=== PATIENT | male | born 1960 | race Caucasian/White ===

== ENCOUNTER 2022-11-18 08:43 | Outpatient (CLI) | payer BC, SELFPAY ==
--- NOTE | 2022-11-18 08:15 | DI.RAD_ITS ---
Exam(s) XR ANKLE LT COMPLETE EXAM: XR ANKLE LT COMPLETE CLINICAL HISTORY: ankle pain TECHNIQUE: 2D digital imaging was performed. Three views. COMPARISON: No exams were available for comparison FINDINGS: BONES: There is a fracture seen extending obliquely through the lateral malleolus the level of the an kle mortise. There is mild displacement of the fracture. This appears subacute. No additional frac tures are seen. Spur is incidentally noted at the dorsal of the talus. Mild spurring seen at tip of medial malleolus. No bony destructive lesion is seen. JOINTS:The ankle mortise is normally aligned. SOFT TISSUE: Mild swelling around lateral malleolus. IMPRESSION: Minimally displaced fracture lateral malleolus without evidence of ankle mortise widening. DATA REPOSITORY: RADIATION DOSE DELIVERED:
== END 2022-11-18 08:44 | disposition home or self-care (01) ==
LOC: DIORS 08:44
PROVIDERS: PCP Internal Medicine; Referring Provider Internal Medicine; Visit Provider Student in an Organized Health Care Education/Training Program
DX: S82.62XA Displaced fracture of lateral malleolus of left fibula, initial encounter for closed fracture (principal); X58.XXXA Exposure to other specified factors, initial encounter
CPT/HCPCS: 73610

== ENCOUNTER 2022-12-08 10:49 | Outpatient (CLI) | payer BC, SELFPAY ==
--- NOTE | 2022-12-08 10:30 | DI.RAD_ITS ---
Exam(s) XR ANKLE LT COMPLETE EXAM: XR ANKLE LT COMPLETE CLINICAL HISTORY: f/u ankle fx. TECHNIQUE: 2D digital imaging was performed. COMPARISON: CR XR ANKLE LT COMPLETE from 11/18/2022 FINDINGS: 3 views Fracture site in the distal fibula appears unchanged. No widening of the ankle mortise. Talar dome unremarkable. No osseous tarsal coalition. IMPRESSION: Unchanged appearance from 11/18/2022. DATA REPOSITORY: RADIATION DOSE DELIVERED:
== END 2022-12-08 10:50 | disposition home or self-care (01) ==
LOC: DIORS 10:49
PROVIDERS: PCP Internal Medicine; Referring Provider Internal Medicine; Visit Provider Student in an Organized Health Care Education/Training Program
DX: S82.62XD Displaced fracture of lateral malleolus of left fibula, subsequent encounter for closed fracture with routine healing; X58.XXXD Exposure to other specified factors, subsequent encounter
CPT/HCPCS: 73610